=== PATIENT | male | born 1970 | race Asian ===

== ENCOUNTER 2024-03-06 17:21 | Emergency (ER) | payer OTHER ==
[~2024-03-06] VITALS: Ht 175.3 cm; Wt 86.2 kg
== END 2024-03-06 19:15 | disposition home or self-care (01) ==
LOC: ER 17:21
DX: R07.81 Pleurodynia (principal); K21.9 Gastro-esophageal reflux disease without esophagitis; Z88.0 Allergy status to penicillin
CPT/HCPCS: 71101; 99283-25